=== PATIENT | male | born 1990 | race Caucasian/White ===

== ENCOUNTER 2017-04-12 21:49 | Emergency (ER) | payer OTHER ==
[2017-04-12 22:24] VITALS: BP 140/89; PULSE 89; RESP 16; TEMP 99.1
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
== END 2017-04-12 22:54 | disposition home or self-care (01) ==
LOC: EC 21:49
DX: S29.012A Strain of muscle and tendon of back wall of thorax, initial encounter (principal); F17.200 Nicotine dependence, unspecified, uncomplicated; X50.1XXA Overexertion from prolonged static or awkward postures, initial encounter; Y93.89 Activity, other specified
CPT/HCPCS: 99283

== ENCOUNTER 2018-02-16 21:42 | Emergency (ER) | payer SELFPAY ==
[2018-02-16 22:08] VITALS: RESP 18
[2018-02-16] MEDS ORDERED: METOCLOPRAMIDE 5 MG/ML 2 ML VIAL IVP STA (23:30)
[2018-02-16] MEDS ORDERED: diphenhydrAMINE 50 MG/ML 1 ML VIAL IVP STA (23:30)
[2018-02-16] MEDS ORDERED: KETOROLAC 30 MG/ML 1 ML VIAL IVP STA (23:30)
[2018-02-16] MEDS ORDERED: SODIUM CHLORIDE 0.9% 1,000 ML IV STA (23:30)
[2018-02-16 23:46] LABS: Basophils % (A) 0 %; Eosinophils # (A) 0.1 k/uL (0-0.7); Eosinophils % (A) 1 %; HCT 43.2 % (39.0-53.0); HGB 14.8 gm/dL (13.0-17.5); Lymphocytes # (A) 1.5 k/uL (1.0-4.8); Lymphocytes % (A) 15 %; MCHC 34.4 g/dL (31.0-37.0); MCV 84.5 fL (80.0-100.0); Mean Platelet Volume 7.9; Monocytes # (A) 0.7 k/uL (0-1.0); Monocytes % (A) 7 %; Neutrophils # (A) 7.8 k/uL (1.3-7.7); Neutrophils % (A) 76 %; Platelet Count 273 k/uL (150-450); RBC 5.11 m/uL (4.30-5.90); RDW 12.6 % (11.5-15.5); WBC 10.2 k/uL (3.8-10.6)
[2018-02-16 23:57] LABS: Anion Gap 12 mmol/L; Blood Urea Nitrogen 10 mg/dL (9-20); Calcium 9.7 mg/dL (8.4-10.2); Carbon Dioxide 23 mmol/L (22-30); Chloride 104 mmol/L (98-107); Glucose 103 mg/dL (74-99); Sodium 139 mmol/L (137-145)
[2018-02-16 23:59] LABS: Potassium 5.7 mmol/L (3.5-5.1)
--- NOTE | 2018-02-17 00:20 | CT ---
EXAMINATION TYPE: CT brain wo con DATE OF EXAM: 02/17/2018 COMPARISON: NONE HISTORY: No prior, GAINES, blurred vision CT DLP: 998.50 mGycm. Automated Exposure Control for Dose Reduction was Utilized. TECHNIQUE: CT scan of the head is performed without contrast. FINDINGS: Ventricles and sulci appear normal. There is no mass effect nor midline shift. There is n o sign of intracranial hemorrhage. There is no evidence of cerebral edema. Calvarium is intact. There is no evidence of an orbital mass. CONCLUSION: Negative CT scan of the brain.
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
[2018-02-17 01:07] VITALS: BP 116/59; PULSE 85; TEMP 97.8
--- NOTE | 2018-02-20 08:34 | CDI ---
Documentation Clarification OP Dear Bouchra Roberson PA-C Please do addendum to ED report that provides Need ER H &P,Physical Exam Thank you, Ajay Calle Guide Delegate If you have any questions, please contact Budget Engineer at [phone] [facility]
== END 2018-02-17 01:06 | disposition home or self-care (01) ==
LOC: EC 21:42
DX: R51 Headache (principal); F17.200 Nicotine dependence, unspecified, uncomplicated
CPT/HCPCS: 99285; 96374; 96375 ×2; 96361; 36415; 93005 ×2; 80048; 82375; 84484; 85025; 70450; J1200; J2765; J1885

== ENCOUNTER 2025-03-22 13:22 | Emergency (ER) | payer OTHER ==
[2025-03-22 13:26] VITALS: RESP 18
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
[2025-03-22] MEDS: DIPH,PERTUS(ACELL)TETVAC-LF 0.5 ML VIAL IM ONE (13:52)
[2025-03-22] MEDS: HYDROcodone/APAP 5-325MG 1 EACH TAB PO STA (13:52)
[2025-03-22] MEDS: ACET/COD 300 MG/30 MG STARTER PACK 6 TAB BTL PO STA (13:52)
[2025-03-22] MEDS: BACITRACIN OINT 1 EACH PACKET TOPICAL STA (13:52)
[2025-03-22 14:34] VITALS: BP 146/84; PULSE 96; TEMP 98
== END 2025-03-22 14:33 | disposition home or self-care (01) ==
LOC: EC 13:22
DX: T23.222A Burn of second degree of single left finger (nail) except thumb, initial encounter (principal); T31.0 Burns involving less than 10% of body surface; X19.XXXA Contact with other heat and hot substances, initial encounter
CPT/HCPCS: 16020; 90715; 96372; 99283